=== PATIENT | male | born 1935 | race African-American/Black ===

== ENCOUNTER 2024-10-11 11:50 | Emergency (ER) | payer OTHER, MEDICARE ==
[2024-10-11 12:18] VITALS: BMI 27.3
[2024-10-11] MEDS ORDERED: NIFEdipine E.R. 30 MG TABLET PO ONE (13:17)
[2024-10-11] MEDS ORDERED: NIFEdipine E.R 60 MG TABLET PO ONE (13:17)
[2024-10-11] MEDS: NIFEdipine E.R. 90 MG TABLET PO SCH (13:19)
[2024-10-11 13:51] VITALS: RESP 18
[2024-10-11 16:21] VITALS: BP 160/92; PULSE 78; TEMP 98.5
== END 2024-10-11 16:25 | disposition home or self-care (01) ==
LOC: JER 11:50
DX: I10 Essential (primary) hypertension (principal)
CPT/HCPCS: 99283-25

== ENCOUNTER 2024-11-25 06:32 | Day surgery (SDC) | payer OTHER, MEDICARE ==
[2024-11-22 10:27] VITALS: BMI 27.3
[2024-11-25] MEDS ORDERED: LIDOCAINE HCL/PF 2% SDV 5ML VIAL ONE (08:38)
[2024-11-25] MEDS ORDERED: MIDAZOLAM HCL 2 MG/2 ML SINGLE DOSE VIAL ONE (08:38)
[2024-11-25] MEDS ORDERED: PROPOFOL 20 ML ONE (08:38)
[2024-11-25] MEDS ORDERED: BUPIVACAINE HCL/PF 0.5% (5MG/ML) 10 ML VIAL ONE (09:00)
[2024-11-25] MEDS ORDERED: LIDOCAINE HCL 1%, 10 MG/ML (20ML VIAL) ONE (09:00)
[2024-11-25] MEDS ORDERED: DEXTROSE 5%-0.45% SALINE 1,000 ML IV SCH (09:15)
[2024-11-25] MEDS ORDERED: DEXAMETHASONE SOD PHOSPHATE 4 MG/1 ML VIAL ONE (09:23)
[2024-11-25] MEDS ORDERED: ceFAZolin SODIUM 1 GM VIAL ONE (09:23)
[2024-11-25] MEDS: ceFAZolin SODIUM 1 GM VIAL IVPB ONE ×2 (09:30)
[2024-11-25] MEDS ORDERED: KETOROLAC TROMETHAMINE 30 MG/1 ML VIAL ONE (09:37)
[2024-11-25] MEDS ORDERED: ONDANSETRON 4 MG/2 ML VIAL ONE (09:37)
[2024-11-25] MEDS: LIDOCAINE HCL 1%, 10 MG/ML (20ML VIAL) INF ONE ×3 (09:41)
[2024-11-25] MEDS ORDERED: oxyCODONE HCL 5 MG TABLET PO PRN ×2 (09:41)
[2024-11-25] MEDS ORDERED: ONDANSETRON 4 MG/2 ML VIAL IVPUSH PRN (09:41)
[2024-11-25] MEDS ORDERED: PROMETHAZINE HCL 25 MG/1 ML VIAL IVPB PRN (09:41)
[2024-11-25] MEDS: BUPIVACAINE HCL/PF 0.5% (5 MG/ML) 30 ML VIAL IJ ONE ×3 (09:41)
[2024-11-25] MEDS: LACTATED RINGERS SOLUTION 1,000 ML IV SCH (10:22)
[2024-11-25] MEDS: ACETAMINOPHEN 1000 MG/100 ML BAG IVPB ONE (10:22)
[2024-11-25 12:15] VITALS: BP 138/70; PULSE 80; RESP 18; TEMP 97.4
== END 2024-11-25 12:10 | disposition home or self-care (01) ==
LOC: JASU-SURG 06:32
PROVIDERS: ATTEND Urology
PROC: 0VB60ZZ Excision of Right Tunica Vaginalis, Open Approach (ICD-10-PCS; principal; 2024-11-25 08:30)
DX: N43.3 Hydrocele, unspecified (principal)
CPT/HCPCS: 82962; 88302-TC; 94760; J0131